=== PATIENT | female | born 1965 | race Caucasian/White ===

== ENCOUNTER 2016-12-19 09:19 | Emergency (ER) | payer MEDICAID ==
[~2016-12-19] VITALS: Ht 175.3 cm; Wt 96.2 kg
[~2016-12-19 09:19] MED LIST: CLIN-44 PO; HYDR-971 PO; IBUP-1060 PO
[2016-12-19 09:23] VITALS: BP 144/90
[2016-12-19] MEDS ORDERED: HYDROCODONE/APAP 5/325MG TABLET. PO ONE (09:45)
--- NOTE | 2016-12-19 10:25 | PHYS DOC ---
Past Medical History Past Medical History: Hypertension Additional Past Medical Histor: back pain and "surgury" GERD Past Surgical History: Other Additional Past Surgical Histo: tubal Alcohol Use: None Drug Use: None Adult General Chief Complaint Chief Complaint: MECHANICAL FALL HPI HPI Patient is a 51 year old female who presents after mechanical fall this morning at 0830. Patient relates that she was wearing flip-flops when she went outside to cut some long. She slipped and fell on her left side. She complains of pain in the left shoulder, left knee, left ankle, and low back. She denies hitting her head or loss of consciousness. She does not have any incontinence or saddle anesthesia. The patient recently moved to [place] to be closer to her daughter. She is currently visiting locally to take care of some final details after her move. Review of Systems Review of Systems Constitutional: Denies fever or chills. [] Eyes: Denies change in visual acuity, redness, or eye pain. [] HENT: Denies ear pain, nasal congestion or sore throat. [] Respiratory: Denies cough or shortness of breath. [] Cardiovascular: Denies chest pain, palpitations or edema. [] GI: Denies abdominal pain, nausea, vomiting, bloody stools or diarrhea. [] : Denies dysuria, hematuria or urinary frequency. [] Musculoskeletal: Denies neck pain. Reports left shoulder, ankle, and knee pain, and low back pain. Integument: Denies rash or skin lesions. [] Neurologic: Denies headache, focal weakness. Denies incontinence or saddle anesthesia. Reports intermittent numbness in the left toes. Endocrine: Denies polyuria or polydipsia. [] Psych: Denies anxiety or depression. [] All systems reviewed and negative unless otherwise stated in the HPI. Current Medications Current Medications Current Medications Medications (Trade) Dose Ordered Sig/Tom Start Time Stop Time Status Last Admin Dose Admin Acetaminophen/ Hydrocodone Bitart (Lortab 5/325) 1 tab 1X ONCE 12/19/16 09:45 12/19/16 09:47 DC 12/19/16 10:39 1 TAB Allergies Allergies Allergies Coded Allergies Type Severity Reaction Last Updated Verified Cephalosporins Allergy Intermediate rash 03/25/16 Yes Erythropoietin Analogues Allergy Intermediate "i dont know" 03/25/16 Yes Penicillins Allergy Intermediate rash 03/25/16 Yes Sulfa (Sulfonamide Antibiotics) Allergy Intermediate rash 03/25/16 Yes Tetracyclines Allergy Intermediate rash 03/25/16 Yes azithromycin Allergy Intermediate "rash" 03/25/16 Yes celecoxib Allergy Intermediate "i dont remember i think it is my GERD" Yes codeine Allergy Intermediate welts 03/25/16 Yes erythromycin base Allergy Intermediate rash 03/25/16 Yes meperidine Allergy Intermediate "i think they gave me to much one time and made me not breat 03/25/16 Yes naproxen Allergy Intermediate GERD 03/25/16 Yes Physical Exam Physical Exam Constitutional: Well developed, well nourished, no acute distress, non-toxic appearance. [] HENT: Normocephalic, atraumatic, oropharynx moist. [] Eyes: PERRLA, EOMI, conjunctiva normal, no discharge. [] Neck: Normal range of motion, no midline or paraspinal tenderness, supple, no stridor. [] Cardiovascular: Heart rate regular rhythm, no murmur. [] Lungs & Thorax: Bilateral breath sounds clear to auscultation without wheezes, rales, or rhonchi. [] Abdomen: Bowel sounds normal, soft, no tenderness, no masses, no pulsatile masses. [] Skin: Warm, dry, no erythema, no rash. [] Back: Lumbar midline tenderness, no CVA tenderness. Left paraspinal muscle tenderness. Extremities: Left clavicle and A/C joint tenderness, ROM intact, no edema. Distal pulses equal bilaterally. Less than 2 second capillary refill in the fingers. Light touch sensation intact distally. There is FROM without tenderness of the elbow, wrist, and hand. Extremities 2: Left posterior knee tenderness, ROM mildly decreased due to pain , no edema. 2+ pedal pulses. Less than 2 second capillary refill in the toes. Light touch sensation intact distally. There is no tenderness of the left hip or thigh. Extremities 3: Left lateral ankle and dorsal proximal foot tenderness, ROM mildly decreased due to pain, minimal edema. Neurovascularly intact. There is no tenderness over the base of the fifth metatarsal or the proximal fibula. Neurologic: Alert and oriented X 3, normal motor function, normal sensory function, no focal deficits noted. CN II-XII grossly intact. Psychologic: Affect normal, judgement normal, mood normal. [] Current Patient Data Vital Signs Vital Signs Date Time Temp Pulse Resp B/P Pulse Ox O2 Delivery O2 Flow Rate FiO2 12/19/16 09:23 97.7 78 20 98 Room Air 97.7 EKG EKG [] Radiology/Procedures Radiology/Procedures REASON: slip & fall on left side PROCEDURE: ANKLE LEFT 3V; KNEE LEFT 3V; LUMBAR SPINE 2-3V; SHOULDER 2+V LEFT Indications: Patient slipped and fell onto the left side 2 hours ago. Pain. 3 view left shoulder study: No acute fracture or dislocation or osteolytic process is seen. No AC joint separation is evident. 3 view left knee study: No acute fracture or dislocation or osteolytic process is seen. No significant swelling of the suprapatellar bursa is seen to indicate a joint effusion radiographically. 3 view left ankle study: No acute fracture or dislocation or osteolytic process is seen. Small round radiolucency is seen within the medial dome of the talus which may be due to an old osteochondral injury. Small plantar and posterior spurs of the calcaneus are seen. IMPRESSION: No acute fracture. Focal lucency of the medial dome of the talus which may represent an old osteochondral injury. If left ankle pain persists, then this may be further evaluated with outpatient MRI imaging of the left ankle. Three-view lumbar spine series: The transverse processes are intact. No acute compression fracture or discitis or osteolytic process or anterolisthesis is seen. There is severe degenerative disc space narrowing and moderate degenerative endplate spurring at L5-S1. There is mild degenerative endplate spurring throughout the rest of the lumbar spine. IMPRESSION: No acute compression fracture of the lumbar spine. Mild degenerative lumbar spondylosis. Course & Med Decision Making Course & Med Decision Making Pertinent Labs and Imaging studies reviewed. (See chart for details) The patient presents with left-sided pain after mechanical fall this morning. On exam, there is no dislocation and she is neurovascularly intact. There are no acute fractures or dislocations seen on x-rays of the left shoulder, knee, ankle, or lumbar spine. Patient is given an [place] wrap for the left ankle. She is discharged home with prescription for [place]. She is given contact information for orthopedics for follow-up. Return precautions were discussed. She verbalizes understanding and agrees with plan. Annabel Disclaimer Annabel Disclaimer This electronic medical record was generated, in whole or in part, using a voice recognition dictation system. Departure Departure Impression: Primary Impression: Ankle sprain Additional Impressions: Knee pain, left Low back pain Shoulder pain, left Disposition: 01 HOME, SELF-CARE Condition: STABLE Referrals: LORETO ESCALERA MD Patient Instructions: Ankle Sprain, [id number], Back Pain, Adult, Easy-to- Read, Knee Pain, [id number], RICE - Routine Care for Injuries, [id number], Shoulder Pain, [id number] Additional Instructions: There were no broken bones or dislocation seen on your x-rays. Please take the prescribed pain medication as directed. Do not drive or operate heavy machinery while taking pain medication. Please follow-up with the orthopedic doctor listed below if your pain continues. Return to the emergency department if you have any new or concerning symptoms. Scripts Hydrocodone/Apap 5-325 ([place] 5-325 Tablet)1 Each Tablet1 Tab PO PRN Q6HRS PRN PAIN #20 TAB Prov:RACIEL ROLLINS 12/19/16 Problem Qualifiers Primary Impression: Ankle sprain Encounter type: initial encounter Involved ligament of ankle: unspecified ligament Laterality: left Qualified Code: S93.402A - Sprain of unspecified ligament of left ankle, initial encounter Additional Impressions: Knee pain, left Chronicity: acute Qualified Code: M25.562 - Pain in left knee Low back pain Chronicity: acute Back pain laterality: midline Sciatica presence: without sciatica Qualified Code: M54.5 - Low back pain Shoulder pain, left Chronicity: acute Qualified Code: M25.512 - Pain in left shoulder RACIEL ROLLINS Dec 19, 2016 10:25
--- NOTE | 2016-12-19 11:26 | RAD ---
Indications: Patient slipped and fell onto the left side 2 hours ago. Pain. 3 view left shoulder study: No acute fracture or dislocation or osteolytic process is seen. No AC joint separation is evident. 3 view left knee study: No acute fracture or dislocation or osteolytic process is seen. No significant swelling of the suprapatellar bursa is seen to indicate a joint effusion radiographically. 3 view left ankle study: No acute fracture or dislocation or osteolytic process is seen. Small round radiolucency is seen within the medial dome of the talus which may be due to an old osteochondral injury. Small plantar and posterior spurs of the calcaneus are seen. IMPRESSION: No acute fracture. Focal lucency of the medial dome of the talus which may represent an old osteochondral injury. If left ankle pain persists, then this may be further evaluated with outpatient MRI imaging of the left ankle. Three-view lumbar spine series: The transverse processes are intact. No acute compression fracture or discitis or osteolytic process or anterolisthesis is seen. There is severe degenerative disc space narrowing and moderate degenerative endplate spurring at L5-S1. There is mild degenerative endplate spurring throughout the rest of the lumbar spine. IMPRESSION: No acute compression fracture of the lumbar spine. Mild degenerative lumbar spondylosis.
[2016-12-19] MEDS ORDERED: HYDR-971 PO (11:36)
== END 2016-12-19 11:53 | disposition home or self-care (01) ==
LOC: ER 09:19
DX: S93.402A Sprain of unspecified ligament of left ankle, initial encounter (principal); M25.562 Pain in left knee; M25.512 Pain in left shoulder; M51.37 Other intervertebral disc degeneration, lumbosacral region; I10 Essential (primary) hypertension; K21.9 Gastro-esophageal reflux disease without esophagitis; Z88.0 Allergy status to penicillin; Z88.1 Allergy status to other antibiotic agents; Z88.2 Allergy status to sulfonamides; Z88.5 Allergy status to narcotic agent; W01.0XXA Fall on same level from slipping, tripping and stumbling without subsequent striking against object, initial encounter; Y93.89 Activity, other specified; Y92.89 Other specified places as the place of occurrence of the external cause; Y99.8 Other external cause status
CPT/HCPCS: 72100; 73030; 73562; 73610; 99284